=== PATIENT | female | born 1965 | race Caucasian/White ===

== ENCOUNTER 2018-07-06 14:17 | Outpatient (REF) | payer MEDICARE, SELFPAY ==
--- NOTE | 2018-07-06 13:45 | PAPFT_PTH ---
PATIENT: Rosa Cowart LOC: [facility] U#:[id number] AGE/SX: 52/F ROOM: RE07/06/[address]: Stefany Nava NP : 1965 BED: DIS: 07/06/2018 SPEC #: [id number] RECD: 07/06/18 17:45 STATUS: YADIRA REBuddy #: [id number] HARMAN: 07/06/18 13:[address]: Stefany Nava NP DEPT: [facility] Cytology RECD BY: Lisha Kumar ENTERED: 07/06/18 17:46 SP TYPE: PAPFT OTHR DR: Rashawn Stanton Tissues: 1 - CX/ENDOCX FOR PAP SMEARS Procedures: PAP THIN PREP/[facility] Screening HPV DNA PROBE Comments: [id number]
== END 2018-07-06 14:37 ==
LOC: LBN 14:17
PROVIDERS: PCP Specialist/Technologist Athletic Trainer; Visit Provider Nurse Practitioner Women's Health
DX: Z12.4 Encounter for screening for malignant neoplasm of cervix (principal); Z11.51 Encounter for screening for human papillomavirus (HPV)
CPT/HCPCS: 88142; 87624

== ENCOUNTER 2020-04-22 00:42 | Outpatient (CLI) | payer MEDICARE, SELFPAY ==
--- NOTE | 2020-04-22 | DI.MAMMO_ITS ---
EXAM: MAMMO SCREENING CLINICAL HISTORY: SCREENING, PREVENTIVE HEALTH CARE,Z00.00 TECHNIQUE: Mammograms were interpreted according to the usual protocol including computer analysis w [employer] CAD system, tomosynthesis and C-view imaging. COMPARISON: FINDINGS: Breasts are of very high density. No dominant mass or clumped microcalcification is identified in ei ther breast. Current examination is compared with previous examinations including September 2016 and there has been no gross interval change in appearance in comparison with the prior studies. IMPRESSION: No specific evidence of malignancy at this time. Routine screening examinations are suggested at ye benjamin intervals due to the family history of breast carcinoma. BI-RADS Category 1 - Negative Breast Density - Category D - Extremely dense
== END 2020-04-22 01:02 ==
PROVIDERS: PCP Specialist/Technologist Athletic Trainer; Visit Provider Nurse Practitioner Family
DX: Z12.31 Encounter for screening mammogram for malignant neoplasm of breast (principal); R92.2 Inconclusive mammogram
CPT/HCPCS: 77063; 77067

== ENCOUNTER 2021-02-20 16:56 | Outpatient (REF) | payer MEDICARE, SELFPAY ==
[2021-02-20 20:38] LABS: TSH (W/Ref FT4) 0.39 uIU/mL (0.36-3.74)
[2021-02-20 20:41] LABS: Vitamin B12 > 2000 pg/mL (193-986)
== END 2021-02-20 16:57 | disposition home or self-care (01) ==
LOC: NCHCN 16:56
PROVIDERS: PCP Specialist/Technologist Athletic Trainer; Visit Provider Family Medicine
DX: G62.9 Polyneuropathy, unspecified (principal)
CPT/HCPCS: 82607; 84443

== ENCOUNTER 2021-04-15 04:16 | Outpatient (CLI) | payer MEDICARE, SELFPAY ==
--- NOTE | 2021-04-15 15:00 | NS.NUTBLAN_ITS ---
Rosa was referred to Medical Nutrition Therapy for abnormal weight loss. 5'2 100 lbs, typical weight 107-110 lbs. Rosa reports that she started to lose weight about 6 months ago with a med change. Attributes weight loss to decrease in appetite due to increase in pain. Dx with RA, on opioid pain pump, gets RA med infusions. Takes Vit D, C and fish oil daily. PMH: anorexia (in college), scoliosis, spinal fusion. Reports having difficulty preparing meals as standing is painful. Lives with her sister. Is vegetarian but consumes fish and dairy. Has been tested for celiac dx in past, negative. Reports no digestion issues, regular BM. Estimated Nutrient Needs for weight gain: 5880-4548 kcal, 50-60 g protein. Session today was to identify nutrient intake, appears to typically eat 1200- 1500 kcal per day. Rosa to start food record and send to sports writer in 3 days to assess baseline macronutrient intake. Will need to add additional 500 kcal per day until weight gainn of 1-2 l bs per week achieved. Goal weight 110 lbs. Will schedule follow up at later time. .
== END 2021-04-15 04:17 | disposition home or self-care (01) ==
LOC: DS 04:16
PROVIDERS: PCP Nurse Practitioner Family; Visit Provider Dietitian, Registered
DX: R63.4 Abnormal weight loss (principal); Z71.3 Dietary counseling and surveillance
CPT/HCPCS: 97802

== ENCOUNTER 2021-08-27 00:27 | Outpatient (CLI) | payer MEDICARE, SELFPAY ==
--- NOTE | 2021-08-27 11:10 | DI.RAD_ITS ---
Exam(s) RF BARIUM SWALLOW EXAM: RF BARIUM SWALLOW CLINICAL HISTORY: DYSPHAGIA R13.10 TECHNIQUE: 2D and realtime digital imaging was performed. CONTRAST MATERIAL: Oral barium Oral water soluble contrast was administered. COMPARISON: No exams were available for comparison FINDINGS: ESOPHAGRAM: This study was performed both standing and recumbent AGUAYO using air contrast technique. Urinalysis Technician film reveals thoracic stimulator electrodes as well as multilevel fusion hardware in the lower thoracic-lumbar spine. There was no aspiration evident. No obvious hyper intense upper esophageal sphincter. No evidence of Zenker's diverticulum. There is no evidence of obvious fixed lesion in the esophagus. No distinct stricture. No hiatal hernia. No obvious Schatzki ring. No tertiary waves. No prominent reflux demonstrated. IMPRESSION: 1. No obvious focal findings on this esophagram study. However, patient did seem to tire while drink ing. Given the history here I recommend follow-up modified barium swallow study for further evaluati on of the actual swallowing mechanism here. RADIATION DOSE DELIVERED: millicent Olsen=18.4 mGy
[2021-08-27] MEDS: Barium Sulfate 60% W/V 355 ML BTL PO (11:20)
[2021-08-27] MEDS: Barium Sulfate 700 MG TAB PO (11:20)
== END 2021-08-27 00:47 ==
PROVIDERS: PCP Nurse Practitioner Family; Visit Provider Internal Medicine
DX: R13.19 Other dysphagia (principal)
CPT/HCPCS: 74221; J3490